=== PATIENT | male | born 2000 | race Caucasian/White ===

== ENCOUNTER 2024-02-21 19:13 | Emergency (ER) | payer OTHER ==
[~2024-02-21] VITALS: Ht 157.5 cm; Wt 53.2 kg
[2024-02-21] MEDS ORDERED: IBUP-1554 PO (21:06)
[2024-02-21] MEDS ORDERED: ACET-66 PO (21:06)
[2024-02-21] MEDS ORDERED: AMOX500T2 PO (21:06)
[2024-02-21 21:35] VITALS: BP 128/73; PULSE 65; RESP 18; TEMP 97.7; O2SAT 97
== END 2024-02-21 22:10 | disposition home or self-care (01) ==
LOC: EMS 19:13
DX: K04.7 Periapical abscess without sinus (principal); K02.9 Dental caries, unspecified; F17.210 Nicotine dependence, cigarettes, uncomplicated
CPT/HCPCS: 99283; Z7502